=== PATIENT | male | born 1995 | race African-American/Black ===

== ENCOUNTER 2020-05-15 19:44 | Emergency (ER) | payer BC, SELFPAY ==
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
[2020-05-15 20:02] VITALS: BP 132/59; PULSE 83; RESP 16; TEMP 37.4; O2SAT 100
[2020-05-15 22:16] LABS: Basophils Percent Auto 0.4 % (0.2-1.2); Eosinophils Absolute Auto 0.1 K/mm3 (0-0.3); Eosinophils Percent Auto 0.6 % (0-4.4); Hematocrit 40.6 % (42.0-52.0); Hemoglobin 14.1 g/dL (14.0-18.0); Immature Granulocyte Absolute 0.03 K/mm3 (0.00-0.031); Immature Granulocyte Percent A 0.3 % (0-0.5); Immature Platelet Fraction Pct 16.9 % (0.9-11.2); Lymphocytes Percent Auto 28.7 % (18.3-44.2); Mean Corpuscular HGB Conc 34.7 g/dl (32-36); Mean Corpuscular Volume 95.1 fl (80-100); Mean Platelet Volume 13.3 fl (7.4-10.4); Monocytes Absolute Auto 1.1 K/mm3 (0.1-0.6); Monocytes Percent Auto 10.5 % (2.6-8.5); Neutrophils Absolute Auto 6.4 K/mm3 (1.3-6.7); Neutrophils Percent Auto 59.5 % (45.5-73.1); Platelet Count Result 173 k/mm3 (150-375); Red Blood Count 4.27 M/mm3 (4.6-6.20); Red Cell Distribution Width 11.9 % (11.5-14.5); White Blood Count 10.8 K/mm3 (4.5-10.0)
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
[2020-05-15 22:28] LABS: Anion Gap 3 mmol/L (8-16); Blood Urea Nitrogen 13 mg/dL (9-20); CRP 0.8 mg/dL (<1.0); Calcium 8.8 mg/dL (8.4-10.2); Carbon Dioxide 28 mmol/L (22-30); Chloride 108 mmol/L (98-107); Estimated CRCL calculation 106 ml/min; Estimated Glomerular Filt Rate > 60; Glucose 91 mg/dL (75-110); Potassium 4.5 mmol/L (3.4-5.0); Sodium 139 mmol/L (137-145)
[2020-05-15 22:42] LABS: Erythrocyte Sedimentation Rate 7 mm/hr (0-20)
[2020-05-15] MEDS: traMADol HCL (*CRX) 50 MG TABLET PO (23:53)
[2020-05-16 00:27] VITALS: BP 129/54; PULSE 79; RESP 18; O2SAT 99
[2020-05-16 00:40] LABS: D Dimer 0.27 ug/mL (<0.48)
[2020-05-16 00:56] VITALS: BP 124/76; PULSE 69; RESP 180; O2SAT 99
[2020-05-16 01:16] LABS: Appearance Synovial Fluid Bloody (Clear); Color Synovial Fluid Red (Colorless); Lymphocytes Synovial Fluid 25 %; Monocytes Synovial Fluid 8 %; Neutrophils Synovial Fluid 66 % (0-25); Source Synovial Fluid Synovial fluid
[2020-05-16 01:17] LABS: Other Cells Synovial Fluid 1 %
== END 2020-05-16 00:58 | disposition home or self-care (01) ==
PROVIDERS: Emergency Provider Emergency Medicine
DX: M25.461 Effusion, right knee (principal); M25.061 Hemarthrosis, right knee
CPT/HCPCS: 20610; 36415; 73562; 80048; 85025; 85055; 85380; 85652; 86140; 87070; 87075; 87205; 88108; 89051; 89060; 99283; A9270